=== PATIENT | female | born 1990 | race African-American/Black ===

== ENCOUNTER 2025-03-31 08:05 | Outpatient (RCR) | payer MEDICAID, SELFPAY | END 2025-07-29 23:59 | disposition home or self-care (01) | PROVIDERS: PCP Registered Nurse; Visit Provider Student in an Organized Health Care Education/Training Program | DX: M25.521 Pain in right elbow (principal); M25.522 Pain in left elbow; Z51.89 Encounter for other specified aftercare | CPT/HCPCS: 97110; 97165; X5282 ==